=== PATIENT | female | born 1935 | race Hispanic/Latino ===

== ENCOUNTER 2016-10-01 15:35 | Emergency (ER) | payer MEDICARE, MEDICAID ==
--- NOTE | 2016-10-01 15:44 | ED PDOC ---
HPI:STROKE - Time Time: 15:41 - Historian Historian: Family (Patient's son) - Onset Date: 10/01/16 Time: 15:30 - Notes: Notes:: 81yo female was brought into the hospital after witnesses report seeing patient fall outside when her cane broke immediately prior to arrival. Patient may have hit her head on a parked car as she fell, loss of consciousness unknown. Attempted multiple sand worker services and patient was not able to understand until son came for translation. NIHSS Stroke Scale - Date/Time Evaluation Performed Date Performed: 10/01/16 Time Performed: 15:41 When Was NIHSS Performed: Baseline - How Severe is the Stroke Level of Consciousness: 0=Alert LOC to Questions: 0=Both comments correct LOC to commands: 0=Obeys both correctly Best Gaze: 0=Normal Visual: 0=No visual loss Facial: 0=Normal Motor Arm - Left: 0=No drift Motor Arm - Right: 0=No drift Motor Leg - Left: 0=No drift Motor Leg - Right: 0=No drift Limb Ataxia: 0=Absent Sensory: 0=Normal Best Language: 0=No aphasia Dysarthia: 0=Normal articulation Extinction & Inattention (Neglect): 0=Normal, no object Score: 0 rTPA Inclusion/Exclusion - Refusal of Treatment Patient Refused Treatment: No - Inclusion Criteria for Altepase Patient is 18 years or Older: Yes The Clinical Diagnosis of Ischemic Stroke That is Causing a Potentially Disabling Neurological Deficit: No Time of Onset is Well Established to be Less Than 270 Minute Before Treatment Would Begin: Yes Risk/Benefit Discussed With Patient/Family Member Present: No - Warning to TPA With Conditions Condition: Age Greater Than 75 years Additional Condition (For 3-4.5 Hour Window): Age Greater Than 80 Past Medical History Reviewed: Historical Data, Nursing Documentation, Vital Signs - Medical History PMH: Depression, Diabetes, HTN, Hypercholesterolemia, Hyperlipidemia, Chronic Kidney Disease (Low kidney function ) - Family History Family History: States: Unknown Family Hx - Home Medications Home Medications: Ambulatory Orders Medication Instructions Recorded Aripiprazole [Abilify] 30 mg PO DAILY 10/01/16 Ergocalciferol (Vitamin D2) 50,000 unit PO QWK 10/01/16 [Vitamin D2] Febuxostat [Uloric] 80 mg PO DAILY 10/01/16 LORazepam [Ativan] 0.5 mg PO BID 10/01/16 Oxybutynin Chloride [Oxybutynin 10 mg PO DAILY 10/01/16 Chloride ER] Paricalcitol [Zemplar] 1 mcg PO Q48H 10/01/16 Rosuvastatin Calcium [Crestor] 10 mg PO DAILY 10/01/16 Sertraline [Zoloft] 100 mg PO DAILY 10/01/16 Valsartan [Diovan] 320 mg PO DAILY 10/01/16 metFORMIN [glucOPHAGE] 500 mg PO BID 10/01/16 traZODone [Desyrel] 50 mg PO HS 10/01/16 - Allergies Allergies/Adverse Reactions: Allergies Allergy/AdvReac Type Severity Reaction Status Date / Time No Known Allergies Allergy Verified 07/01/15 10:14 Review of Systems ROS Statement: Except As Marked, All Systems Reviewed And Found Negative Musculoskeletal: Positive for: Neck Pain Neurological: Negative for: Weakness, Numbness, Headache, Dizziness Physical Exam - Reviewed Nursing Documentation Reviewed: Yes Vital Signs Reviewed: Yes - Physical Exam Appears: Positive for: Non-toxic, No Acute Distress Head Exam: Positive for: ATRAUMATIC, NORMAL INSPECTION, NORMOCEPHALIC Skin: Positive for: Warm, Dry, Pallor Eye Exam: Positive for: EOMI, PERRL ENT: Positive for: Other (tacky mucous membranes) Neck: Positive for: Normal, Painless ROM, Supple Cardiovascular/Chest: Positive for: Regular Rate, Rhythm Respiratory: Positive for: Normal Breath Sounds. Negative for: Rales, Rhonchi, Respiratory Distress Gastrointestinal/Abdominal: Positive for: Soft. Negative for: Tenderness Extremity: Positive for: Other (strength 4+/5 in all extremities. trace bilateral lower leg edema.) Neurologic/Psych: Positive for: Alert, Oriented (x3). Negative for: Aphasia, Facial Droop - Laboratory Results Result Diagrams: 10/01/16 15:45 10/01/16 15:45 - ECG ECG: Positive for: Interpreted By Me, Viewed By Me ECG Rhythm: Positive for: Normal QRS, Sinus Rhythm. Negative for: ST/T Changes Rate: 91 O2 Sat by Pulse Oximetry: 96 (RA) Pulse Ox Interpretation: Normal Medical Decision Making Medical Decision Makin: Dr. Hdz spoke to patient's son who will come to the ED. Impression: fall Differential includes electrolyte abnormality, dehydration, syncope, acute coronary syndrome, CVA, TIA. 1555 CT Head w/o is negative for acute changes per radiology. CT Head w/o Impression: No acute intracranial hemorrhage. . Moderate chronic periventricular white matter ischemic changes Moderate volume loss. 1556 Son is at bedside, tells newswriter patient is diabetic, has htn, and ckd. Son states patient has difficulty walking due to foot problems. Patient tells son she fell but is unsure of cause. Son states patient has difficulty lifting legs due to arthritis, other conditions, and is unsteady on her feet Patient denies headache, any pain or any injury. Also denies new weakness, numbness. Son states patient was feeling well when he took her food shopping this morning. Son denies any noticeable changes in speech. 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 Son states patient has fallen in the past, was given a walker but refuses to use it. Patient is scheduled to see PMD tomorrow. Patient's only compliant is very mild neck pain. 1556: after obtaining Hx from son, clinically patient most likely had mechanical trip and fall. Very unlikely stroke given pt has no deficits at onset of fall or now. Blood pressure normalized without any intervention. CXR Impression from radiology report Poor inspiration with low lung volumes, mild crowded bronchovascular markings and mild bibasilar atelectasis. 445p Labs demonstrated BUN/Cr of 58/2.0 D/w Dr Bright pt's interlocking tower operator, who reports this is stable for her. DW pt and son findings so far. Pending CT neck and mag/phos. 1814 CT C-Spine w/o Impression No CT evidence of acute fracture or subluxation. Advanced degenerative changes more prominent at C4-C5 and C6-C7. Pt stable for dc. Walker provided to patient and educated on fall precautions. Disposition - Clinical Impression Clinical Impression: Fall, CKD (chronic kidney disease) - Disposition Referrals: Rodger Salguero MD [Staff Provider] - 10/02/16 (FOLLOW UP SCHEDULED WITH DR SALGUERO TOMORROW) Disposition: Routine/Home Disposition Time: 18:00 Condition: GOOD Additional Instructions: CONTINUE ALL MEDICATIONS PRESCRIBED RETURN TO ER FOR WORSENING SYMPTOMS Instructions: Chronic Kidney Disease (ED), Fall Prevention for Older Adults (ED ) Additional Comments - Additional Comments Additional Comments: Scribe Attestation: Documented by Jose Landeros acting as a scribe for Torsten Roe MD. Provider Scribe Attestation: All medical record entries made by the Scribe were at my direction and personally dictated by me. I have reviewed the chart and agree that the record accurately reflects my personal performance of the history, physical exam, medical decision making, and the department course for this patient. I have also personally directed, reviewed, and agree with the discharge instructions and disposition.
[2016-10-01 15:56] LABS: BASO # 0.1 K/uL (0.0-0.2); BASO % 0.9 % (0.0-2.0); EOS # 0.1 K/uL (0.0-0.7); EOS % 0.7 % (0.0-4.0); HEMATOCRIT 33.3 % (34.0-47.0); LYMPH # 2.9 K/uL (1.0-4.3); LYMPH % 35.8 % (20.0-40.0); MEAN CELL VOLUME 84.9 fl (81.0-99.0); MEAN CORPUSCULAR HEMOGLOBIN 28.8 pg (27.0-31.0); MEAN PLATELET VOLUME 8.4 fl (7.2-11.7); MONO # 0.5 K/uL (0.0-0.8); MONO % 6.7 % (0.0-10.0); NEUT # 4.6 K/uL (1.8-7.0); NEUT % 55.9 % (50.0-75.0); RED CELL DISTRIBUTION WIDTH 14.8 % (11.5-14.5); WHITE BLOOD COUNT 8.2 K/uL (4.8-10.8)
[2016-10-01 16:15] LABS: CHLORIDE 104 mmol/L (98-107); POTASSIUM 4.3 MMOL/L (3.6-5.0); SODIUM 139 mmol/l (132-148)
[2016-10-01 16:16] LABS: PARTIAL THROMBOPLASTIN TIME 24.2 SECONDS (23.3-32.5)
[2016-10-01 16:17] LABS: ALB/GLOB RATIO 1.2 (1.0-2.1); BILIRUBIN,TOTAL 0.5 mg/dl (0.2-1.3); CARBON DIOXIDE 19 mmol/L (22-30); CHOLESTEROL 160 mg/dL (0-199); GFR AFRICAN-AMERICAN 29; TOTAL PROTEIN 8.2 G/DL (6.3-8.2)
[2016-10-01 16:18] LABS: ALKALINE PHOSPHATASE 73 U/L (38-126); ALT/SGPT 22 U/L (9-52); AST/SGOT 30 U/L (14-36); BLOOD UREA NITROGEN 58 mg/dl (7-17); CALCIUM 10.7 mg/dL (8.4-10.2); GLUCOSE,RANDOM 126 mg/dL (65-105)
[2016-10-01 16:41] LABS: PHOSPHOROUS 4.4 mg/dl (2.5-4.5)
[2016-10-01 16:42] LABS: MAGNESIUM 1.6 MG/DL (1.6-2.3)
[2016-10-01 17:12] VITALS: TEMP 97.9
--- NOTE | 2016-10-01 17:14 | CT ---
PROCEDURE: CT HEAD WITHOUT CONTRAST. HISTORY: code stroke COMPARISON: Comparison CT scan brain 07/01/2015 TECHNIQUE: Axial computed tomography images were obtained through the head/brain without intravenous contrast. Radiation dose: Total exam DLP = 1276.54 mGy-cm. This CT exam was performed using one or more of the following dose reduction techniques: Automated exposure control, adjustment of the mA and/or kV according to patient size, and/or use of iterative reconstruction technique. FINDINGS: HEMORRHAGE: No acute parenchymal, subarachnoid or extra-axial hemorrhage. BRAIN: Moderate chronic periventricular white matter ischemic changes seen extending peripherally into the deep and subcortical white matter both cerebral hemispheres. This appears to be some extension of these changes into the white matter tracts of both basal nuclei. Dense vascular calcifications of carotid siphons. Moderate volume loss. VENTRICLES: Ventricles are enlarged due to volume loss however no evidence of obstructive hydrocephalus CALVARIUM: No acute calvarial fractures. PARANASAL SINUSES: Unremarkable as visualized. No significant inflammatory changes. MASTOID AIR CELLS: Unremarkable as visualized. No inflammatory changes. OTHER FINDINGS: Status post cataract surgery right globe. IMPRESSION: No acute intracranial hemorrhage. . Moderate chronic periventricular white matter ischemic changes Moderate volume loss. Findings discussed with Dr. Hdz at approximately 3:56 p.m. with written down and read back verification
--- NOTE | 2016-10-01 17:16 | RAD ---
HISTORY: fall COMPARISON: Comparison made with prior study dated 07/01/2015 FINDINGS: LUNGS: Poor inspiration with low lung volumes, mild crowded bronchovascular markings and mild bibasilar atelectasis. PLEURA: No significant pleural effusion identified, no pneumothorax apparent. CARDIOVASCULAR: Mild cardiomegaly may also be in part due to low lung volumes OSSEOUS STRUCTURES: No significant abnormalities. VISUALIZED UPPER ABDOMEN: Normal. OTHER FINDINGS: None. IMPRESSION: Poor inspiration with low lung volumes, mild crowded bronchovascular markings and mild bibasilar atelectasis.
[2016-10-01 17:26] VITALS: BP 143/63; RESP 21
[2016-10-01 17:32] VITALS: PULSE 91; O2SAT 96
--- NOTE | 2016-10-01 18:11 | CT ---
PROCEDURE: CT Cervical Spine without contrast HISTORY: Neck pain status post fall COMPARISON: None available. TECHNIQUE: Axial computed tomography images were obtained of the cervical spine without the use of intravenous contrast. Coronal and sagittal reformatted images were created and reviewed. Radiation dose: Total exam DLP = 537.8 mGy-cm. This CT exam was performed using one or more of the following dose reduction techniques: Automated exposure control, adjustment of the mA and/or kV according to patient size, and/or use of iterative reconstruction technique. FINDINGS: VERTEBRAE: No fracture. Normal alignment. No destructive bony lesion. DISCS/SPINAL CANAL/NEURAL FORAMINA: Advanced degenerative changes seen more prominent at C4-C5 and C6-C7 . Large osteophyte disc bulging complex at C4-C5 and C6-C7. Narrowing of the intervertebral disc space at C4-C5 and C6-C7 noted. PARASPINAL SOFT TISSUES: [id number] enlargement of the right thyroid lobe contains focal calcification. OTHER FINDINGS: None. IMPRESSION: No CT evidence of acute fracture or subluxation. Advanced degenerative changes more prominent at C4-C5 and C6-C7.
--- NOTE | 2016-10-02 11:44 | CARD ---
APPROVED REPORT EKG Measurement Heart [id number] <Conclusion> Normal sinus rhythm Left axis deviation Moderate voltage criteria for LVH, may be normal variant Abnormal ECG
== END 2016-10-01 18:45 | disposition home or self-care (01) ==
LOC: H.ER 15:35
DX: N18.9 Chronic kidney disease, unspecified (principal); E11.9 Type 2 diabetes mellitus without complications; W19.XXXA Unspecified fall, initial encounter

== ENCOUNTER 2016-10-03 14:18 | Inpatient (IN) | payer MEDICARE, MEDICAID ==
--- NOTE | 2016-10-03 15:29 | ED PDOC ---
HPI: Abdomen Time Seen by Provider: 10/03/16 15:00 Chief Complaint (Nursing): Abdominal Pain Chief Complaint (Provider): Abdominal Pain History Per: Patient, Family History/Exam Limitations: no limitations Onset/Duration Of Symptoms: Days Current Symptoms Are (Timing): Still Present Severity: Mild Location Of Pain/Discomfort: Epigastric Quality Of Discomfort: "Pain" Associated Symptoms: denies: Fever, Nausea Exacerbating Factors: None Alleviating Factors: None Additional Complaint(s): Patient is a 81 year old female brought to ED by son for evaluation of abdominal pain and cough that began today. As per son, patient began coughing today, notes that the cough is causing her abdominal pain. Of note, patient fell a few days ago, evaluated at that time all negative imaging. Today with continue pain to bilateral arms. Denies any new falls. Of note, patient was evaluated by PMD yesterday as a routine visit, administered a pneumonia vaccine, no coughing at that time. Past Medical History Reviewed: Historical Data, Nursing Documentation, Vital Signs Vital Signs: Last Vital Signs Temp 98.5 F 10/06/16 08:22 Pulse 97 H 10/06/16 08:22 Resp 22 10/06/16 08:22 BP 159/81 H 10/06/16 08:22 Pulse Ox 93 L 10/06/16 08:50 - Medical History PMH: Depression, Diabetes, HTN, Hypercholesterolemia, Hyperlipidemia, Chronic Kidney Disease (Low kidney function ) - Surgical History Surgical History: No Surg Hx - Family History Family History: States: Unknown Family Hx - Living Arrangements Living Arrangements: With Family - Social History Current smoker - smoking cessation education provided: No Alcohol: None Drugs: Denies - Home Medications Home Medications: Ambulatory Orders Medication Instructions Recorded Aripiprazole [Abilify] 30 mg PO DAILY 10/01/16 Ergocalciferol (Vitamin D2) 50,000 unit PO QWK 10/01/16 [Vitamin D2] Febuxostat [Uloric] 80 mg PO DAILY 10/01/16 LORazepam [Ativan] 0.5 mg PO BID 10/01/16 Oxybutynin Chloride [Oxybutynin 10 mg PO DAILY 10/01/16 Chloride ER] Paricalcitol [Zemplar] 1 mcg PO Q48H 10/01/16 Rosuvastatin Calcium [Crestor] 10 mg PO DAILY 10/01/16 Sertraline [Zoloft] 100 mg PO DAILY 10/01/16 Valsartan [Diovan] 320 mg PO DAILY 10/01/16 metFORMIN [glucOPHAGE] 500 mg PO BID 10/01/16 traZODone [Desyrel] 50 mg PO HS 10/01/16 Enoxaparin [Lovenox] 30 mg SC DAILY syr 10/05/16 Insulin Human Regular [HumuLIN R] 0 units SC ACHS ml 10/05/16 Lactulose [Enulose] 10 gm PO DAILY PRN 10/05/16 Promethazine DM [Phenergan DM 5 ml PO Q6 PRN 10/05/16 Syrup] Azithromycin 500MG/NS 250ml 500 mg IV DAILY #7 bag 10/06/16 [Zithromax 500mg in NS] cefTRIAXone 1 gm [Rocephin 1 gram 1 gm IVPB DAILY #7 bag 10/06/16 IVPB] - Allergies Allergies/Adverse Reactions: Allergies Allergy/AdvReac Type Severity Reaction Status Date / Time No Known Allergies Allergy Verified 07/01/15 10:14 Review of Systems ROS Statement: Except As Marked, All Systems Reviewed And Found Negative Constitutional: Negative for: Fever, Chills Cardiovascular: Negative for: Chest Pain, Palpitations Respiratory: Positive for: Cough. Negative for: Shortness of Breath Gastrointestinal: Positive for: Abdominal Pain Musculoskeletal: Positive for: Arm Pain Neurological: Negative for: Weakness, Numbness Physical Exam - Reviewed Nursing Documentation Reviewed: Yes Vital Signs Reviewed: Yes - Physical Exam Appears: Positive for: Non-toxic, No Acute Distress Head Exam: Positive for: ATRAUMATIC, NORMAL INSPECTION, NORMOCEPHALIC Skin: Positive for: Normal Color, Warm, DRY Eye Exam: Positive for: Normal appearance, PERRL Neck: Positive for: Normal, Painless ROM Cardiovascular/Chest: Positive for: Regular Rate, Rhythm, Chest Non Tender. Negative for: Murmur Respiratory: Positive for: Normal Breath Sounds. Negative for: Wheezing Gastrointestinal/Abdominal: Positive for: Normal Exam, Soft. Negative for: Tenderness Back: Positive for: Normal Inspection Extremity: Positive for: Normal ROM Neurologic/Psych: Positive for: Alert, Oriented - Laboratory Results Result Diagrams: 10/06/16 05:30 10/06/16 05:30 - ECG O2 Sat by Pulse Oximetry: 99 (RA) Pulse Ox Interpretation: Normal - Progress ED Course And Treament: 17:37 CXR FINDINGS: Examination limited by habitus and hypoinflation. LUNGS: Mild left lower lobe infiltrate. Linear atelectasis, right lung base. Please note that chest x-ray has limited sensitivity for the detection of pulmonary masses. PLEURA: No significant pleural effusion identified. No definite pneumothorax . CARDIOVASCULAR: Borderline cardiomegaly. Ectatic aorta. OSSEOUS STRUCTURES: Osseous demineralization. Degenerative changes. Kyphosis. VISUALIZED UPPER ABDOMEN: Unremarkable. OTHER FINDINGS: None. IMPRESSION: Mild left lower lobe infiltrate. Linear atelectasis, right lung base. 18:15 Patient will be given antibiotics for pneumonia and will be admitted. Son was informed of plan at bedside and agrees to the plan. Spoke to Bennett Hagen who will be admitting for Dr. Esparza. Medical Decision Making Medical Decision Making: Time: 151 Initial impression: chest/back pain R/O pneumonia and strep Initial plan: -- CMP -- Lipase -- CBC -- CXR -- Pepcid and Rapid strep cxr mild LLL infiltrate pt and pts son at bedside made forrest of results will admit iv abx ordered dx pneumonia Scribe Attestation: Documented by Beth Londono acting as a scribe for Luis Noriega MD. Scribe Attestation: All medical record entries made by the Scribe were at my direction and personally dictated by me. I have reviewed the chart and agree that the record accurately reflects my personal performance of the history, physical exam, medical decision making, and the department course for this patient. I have also personally directed, reviewed, and agree with the discharge instructions and disposition. Disposition - Clinical Impression Clinical Impression: Rib pain, Pneumonia - Patient ED Disposition Is Patient to be Admitted: Yes - Disposition Disposition Time: 17:00 Condition: STABLE
[2016-10-03 16:18] LABS: BASO % 0.4 % (0.0-2.0); EOS % 0.6 % (0.0-4.0); HEMATOCRIT 35.9 % (34.0-47.0); LYMPH # 0.9 K/uL (1.0-4.3); LYMPH % 13.6 % (20.0-40.0); MEAN CELL VOLUME 84.5 fl (81.0-99.0); MEAN CORPUSCULAR HEMOGLOBIN 28.9 pg (27.0-31.0); MEAN CORPUSCULAR HGB CONC 34.2 g/dL (33.0-37.0); MEAN PLATELET VOLUME 8.3 fl (7.2-11.7); MONO # 0.5 K/uL (0.0-0.8); MONO % 7.8 % (0.0-10.0); NEUT # 5.4 K/uL (1.8-7.0); NEUT % 77.6 % (50.0-75.0); RED CELL DISTRIBUTION WIDTH 14.8 % (11.5-14.5); WHITE BLOOD COUNT 6.9 K/uL (4.8-10.8)
[2016-10-03 16:46] LABS: BILIRUBIN,TOTAL 0.7 mg/dl (0.2-1.3); CALCIUM 10.3 mg/dL (8.4-10.2); POTASSIUM 4.5 MMOL/L (3.6-5.0); TOTAL PROTEIN 8.2 G/DL (6.3-8.2)
[2016-10-03 16:58] LABS: ALB/GLOB RATIO 1.1 (1.0-2.1)
--- NOTE | 2016-10-03 17:39 | RAD ---
HISTORY: cough COMPARISON: Chest x-ray performed 10/01/16 TECHNIQUE: Chest PA and lateral FINDINGS: Examination limited by habitus and hypoinflation. LUNGS: Mild left lower lobe infiltrate. Linear atelectasis, right lung base. Please note that chest x-ray has limited sensitivity for the detection of pulmonary masses. PLEURA: No significant pleural effusion identified. No definite pneumothorax . CARDIOVASCULAR: Borderline cardiomegaly. Ectatic aorta. OSSEOUS STRUCTURES: Osseous demineralization. Degenerative changes. Kyphosis. VISUALIZED UPPER ABDOMEN: Unremarkable. OTHER FINDINGS: None. IMPRESSION: Mild left lower lobe infiltrate. Linear atelectasis, right lung base.
[2016-10-03] MEDS ORDERED: Azithromycin 500 MG in Sodium Chloride 0.9% 250 ML IVPB STA (18:33)
[2016-10-03] MEDS ORDERED: Albuterol 0.083% Inhal Sol (2.5 mg/3 mL) UD INH PRN (18:34)
[2016-10-03] MEDS: Promethazine DM 6.25 mg-15 mg/5 ml Syrup PO PRN (23:45)
[2016-10-04] MEDS: Promethazine DM 6.25 mg-15 mg/5 ml Syrup PO PRN ×2 (05:22→16:19)
[2016-10-04 06:54] LABS: BASO % 0.5 % (0.0-2.0); EOS # 0.1 K/uL (0.0-0.7); EOS % 1.1 % (0.0-4.0); HEMATOCRIT 34.8 % (34.0-47.0); LYMPH # 1.3 K/uL (1.0-4.3); LYMPH % 17.8 % (20.0-40.0); MEAN CELL VOLUME 85.3 fl (81.0-99.0); MEAN CORPUSCULAR HEMOGLOBIN 28.5 pg (27.0-31.0); MEAN CORPUSCULAR HGB CONC 33.4 g/dL (33.0-37.0); MEAN PLATELET VOLUME 8.4 fl (7.2-11.7); MONO # 0.7 K/uL (0.0-0.8); MONO % 10.1 % (0.0-10.0); NEUT % 70.5 % (50.0-75.0); NRBC % 0.1 % (0.0-0.0); RED CELL DISTRIBUTION WIDTH 14.8 % (11.5-14.5); WHITE BLOOD COUNT 7.1 K/uL (4.8-10.8)
[2016-10-04 07:12] LABS: BILIRUBIN,TOTAL 0.5 mg/dl (0.2-1.3); CALCIUM 9.6 mg/dL (8.4-10.2); POTASSIUM 4.4 MMOL/L (3.6-5.0); TOTAL PROTEIN 7.4 G/DL (6.3-8.2)
--- NOTE | 2016-10-04 07:27 | CP.PCM.HP ---
History of Present Illness - History of Present Illness History of Present Illness: pt admitted for pna. states has had cough x 3 days prior to admission. spoke w/ son whostates pt has also been unstable on walker and fell 2 days ago. no f/c, n /v/d. bw and imagin gnoted. son requesting jas. Present on Admission - Present on Admission Any Indicators Present on Admission: Yes History of Uncontrolled Diabetes: Yes Review of Systems - Respiratory Respiratory: As Per HPI, Cough, Chest Congestion - Musculoskeletal Musculoskeletal: As Per HPI - Neurological Neurological: As Per HPI, Frequent Falls Past Patient History - Infectious Disease Hx of Infectious Diseases: None - Past Medical History & Family History Past Medical History?: Yes - Past Social History Smoking Status: Never Smoked - CARDIAC Hx Hypercholesterolemia: Yes Hx Hypertension: Yes - PULMONARY Hx Respiratory Disorders: No - NEUROLOGICAL Hx Neurological Disorder: No - HEENT Hx HEENT Problems: No - RENAL Hx Chronic Kidney Disease: Yes (Low kidney function ) - ENDOCRINE/METABOLIC Hx Endocrine Disorders: Yes Hx Diabetes Mellitus Type 2: Yes - HEMATOLOGICAL/ONCOLOGICAL Hx Blood Disorders: No - INTEGUMENTARY Hx Dermatological Problems: No - MUSCULOSKELETAL/RHEUMATOLOGICAL Hx Falls: Yes - GASTROINTESTINAL Hx Gastrointestinal Disorders: No - GENITOURINARY/GYNECOLOGICAL Hx Genitourinary Disorders: No - PSYCHIATRIC Hx Depression: Yes - SURGICAL HISTORY Hx Surgeries: No - ANESTHESIA Hx Anesthesia: No Hx Anesthesia Reactions: No Meds Allergies/Adverse Reactions: Allergies Allergy/AdvReac Type Severity Reaction Status Date / Time No Known Allergies Allergy Verified 07/01/15 10:14 Physical Exam - Constitutional Appears: Well, Non-toxic, No Acute Distress - Head Exam Head Exam: ATRAUMATIC, NORMAL INSPECTION, NORMOCEPHALIC - Eye Exam Eye Exam: EOMI, Normal appearance, PERRL Pupil Exam: NORMAL ACCOMODATION, PERRL - ENT Exam ENT Exam: Mucous Membranes Moist, Normal Exam - Neck Exam Neck exam: Positive for: Normal Inspection - Respiratory Exam Respiratory Exam: Clear to Auscultation Bilateral, Rhonchi, NORMAL BREATHING PATTERN Additional comments: r base rhonchi - Cardiovascular Exam Cardiovascular Exam: REGULAR RHYTHM, RRR, +S1, +S2 - GI/Abdominal Exam GI & Abdominal Exam: Normal Bowel Sounds, Soft. absent: Tenderness - Extremities Exam Extremities exam: Positive for: full ROM, normal capillary refill, normal inspection, pedal pulses present - Back Exam Back exam: NORMAL INSPECTION - Neurological Exam Neurological exam: Abnormal Gait, Alert, CN II-XII Intact, Normal Gait, Oriented x3, Reflexes Normal - Psychiatric Exam Psychiatric exam: Normal Affect, Normal Mood - Skin Skin Exam: Dry, Intact, Normal Color, Warm Results - Vital Signs Recent Vital Signs: Last Vital Signs Temp 97.5 F L 10/04/16 05:00 Pulse 87 10/04/16 05:00 Resp 19 10/04/16 05:00 BP 158/88 H 10/04/16 05:00 Pulse Ox 99 10/04/16 05:00 - Labs Result Diagrams: 10/04/16 05:35 10/04/16 05:35 Labs: Laboratory Results - last 24 hr 10/03/16 10/04/16 10/04/16 21:20 05:35 05:35 WBC 7.1 RBC 4.08 Hgb 11.6 L Hct 34.8 MCV 85.3 MCH 28.5 MCHC 33.4 RDW 14.8 H Plt Count 143 MPV 8.4 Neut % (Auto) 70.5 Lymph % (Auto) 17.8 L Frio % (Auto) 10.1 H Eos % (Auto) 1.1 Baso % (Auto) 0.5 Neut # 5.0 Lymph # 1.3 Frio # 0.7 Eos # 0.1 Baso # 0.0 Sodium 140 Potassium 4.4 Chloride 106 Carbon Dioxide 21 L Anion Gap 17 BUN 47 H Creatinine 1.7 H Est GFR ( Amer) 35 Est GFR (Non-Af Amer) 29 POC Glucose (mg/dL) 198 H Random Glucose 223 H Calcium 9.6 Total Bilirubin 0.5 AST 23 ALT 19 Alkaline Phosphatase 76 Total Protein 7.4 Albumin 3.8 Globulin 3.6 Albumin/Globulin Ratio 1.0 10/04/16 05:46 WBC RBC Hgb Hct MCV MCH MCHC RDW Plt Count MPV Neut % (Auto) Lymph % (Auto) Frio % (Auto) Eos % (Auto) Baso % (Auto) Neut # Lymph # Frio # Eos # Baso # Sodium Potassium Chloride Carbon Dioxide Anion Gap BUN Creatinine Est GFR ( Amer) Est GFR (Non-Af Amer) POC Glucose (mg/dL) 222 H Random Glucose Calcium Total Bilirubin AST ALT Alkaline Phosphatase Total Protein Albumin Globulin Albumin/Globulin Ratio Assessment & Plan (1) Pneumonia Assessment and Plan: rocephin/zithormax, phenergen, albuterol Status: Acute (2) DVT prophylaxis Assessment and Plan: scd and aehose, lovneox Status: Acute (3) Fall Assessment and Plan: pt/ot jas Status: Acute (4) Type 2 diabetes mellitus with hyperglycemia Assessment and Plan: riss, home meds, fsbg Status: Acute (5) Constipation Assessment and Plan: colace, lactuloose Status: Acute Decision To Admit - Pt Status Changed To: Hospital Disposition Of: Inpatient - Admit Certification Admit to Inpatient:: After my assessment, the patient will require hospitalization for at least two midnights. This is because of the severity of symptoms shown, intensity of services needed, and/or the medical risk in this patient being treated as an outpatient. - . Bed Request Type: Med/Surg Admitting Physician: Gilbert Esparza
[2016-10-04] MEDS: Azithromycin 500 MG in Sodium Chloride 0.9% 250 ML IVPB SCH (10:20)
[2016-10-04] MEDS ORDERED: Insulin Regular 100 units/ml SC STA (13:49)
--- NOTE | 2016-10-04 14:01 | PQF GENQUE ---
Nicole Hagen FIELD PROFESSIONAL, Is there an associated diagnosis to go along with the following chemistry lab results ?: BUN:52->47 Creatinine:2.1->1.7 GFR ( Amer/Non-Af Amer:->/ OR: Disagree OR: Unable to determine OR: Other explanation of clinical finding H and P: 81 year old female: Assessment Plan:(1) Pneumonia Assessment and Plan : rocephin/zithormax, phenergen, albuterol Status: Acute (2) DVT prophylaxis Assessment and Plan: scd and aehose, lovneox Status: Acute (3) Fall Assessment and Plan: pt/ot jas Status: Acute (4) Type 2 diabetes mellitus with hyperglycemia Assessment and Plan: riss, home meds, fsbg Status: Acute (5) Constipation Assessment and Plan: colace, lactuloose This form is a permanent part of the medical record Clarification of your documentation is requested to better reflect the severity of illness and intensity of treatment of your patient. Indicators present [] Specify: [] [] Specify: [] [] Specify: [] [] Specify: [] Location in the medical record that reflects the above clinical findings: [] Treatment Provided: [] PHYSICIAN'S RESPONSE Based on your medical judgment of the clinical indicators outlined above please clarify the following: [] Practitioner response dipak secondary to dehydration, ivf [] If unable to determine, please check the box, sign and date. Present On Admission (POA) Indicator: [] Present at the time of admission [] Not present at the time of admission [] Clinically Undetermined In responding to this query, please exercise your independent professional judgment. The fact that a question is asked does not imply that any particular answer is desired or expected. Thank you for your clarification on this documentation. If you have any questions please call. * Thank you, Shanon Lama RN BSN ext. #[phone] MTDD
--- NOTE | 2016-10-04 14:10 | PQF GENQUE ---
Nicole Hagen PHYSICIAN IN PRIVATE PRACTICE, 1. Please specify type of pneumonia in the progress notes:if known after work up completed: i.e. Aspiration pneumonia Please document specific aspirate (food, liquids, etc.) Please indicate if this is postprocedural Bacterial (specify organism) Bronchopneumonia (specify organism) Interstitual pneumonia Organizing pneumonia/BOOP Pneumonia with influenza, phil flu, or H1N1 flu RSV pneumonia Viral pneumonia Other pneumonia (specify organism or type) OR; Unable to determine OR: Unknown 2.. Please specify the organism causing the pneumonia:if known: after work up completed Note: CAP, HAP, and HCAP indicate where the pneumonia was acquired, not a specific type. H and P:81 year old female: diagnoses include: (1) Pneumonia Assessment and Plan : rocephin/zithormax, phenergen, albuterol Status: Acute cxr:Imp:Mild left lower lobe infiltrate. Linear atelectasis, right lung base. This form is a permanent part of the medical record Clarification of your documentation is requested to better reflect the severity of illness and intensity of treatment of your patient. Indicators present [] Specify: [] [] Specify: [] [] Specify: [] [] Specify: [] Location in the medical record that reflects the above clinical findings: [] Treatment Provided: [] PHYSICIAN'S RESPONSE Based on your medical judgment of the clinical indicators outlined above please clarify the following: [] Practitioner response CAP [] If unable to determine, please check the box, sign and date. Present On Admission (POA) Indicator: [] Present at the time of admission [] Not present at the time of admission [] Clinically Undetermined In responding to this query, please exercise your independent professional judgment. The fact that a question is asked does not imply that any particular answer is desired or expected. Thank you for your clarification on this documentation. If you have any questions please call. * Thank you, Shanon Lama RN BSN ext. #[phone] MTDD
[2016-10-04] MEDS: Insulin Regular 100 units/ml SC SCH ×3 (16:26→22:17)
[2016-10-04] MEDS ORDERED: Ergocalciferol 50,000 Intl Units Cap PO SCH (21:25)
[2016-10-05] MEDS: Insulin Regular 100 units/ml SC SCH ×4 (07:47→21:02)
[2016-10-05] MEDS: Enoxaparin 30 mg Syringe SC SCH (08:20)
[2016-10-05] MEDS: Azithromycin 500 MG in Sodium Chloride 0.9% 250 ML IVPB SCH (08:31)
[2016-10-05] MEDS: Promethazine DM 6.25 mg-15 mg/5 ml Syrup PO PRN ×2 (08:35→21:02)
--- NOTE | 2016-10-05 09:35 | CP.PCM.PN ---
Subjective - Date & Time of Evaluation Date of Evaluation: 10/05/16 Time of Evaluation: 09:35 - Subjective Subjective: in bed, c/o pleuritc pain w/ coughing, no f/c, n/v/d. bw noted. case d/c w/ son at bedside. for min macias tomorrow. glucose trending down. ivf started for elev bun/cr Objective - Vital Signs/Intake and Output Vital Signs (last 24 hours): Temp Pulse Resp BP Pulse Ox 98.3 F 100 H 20 179/100 H 94 L 10/05/16 08:48 10/05/16 08:48 10/05/16 08:48 10/05/16 08:48 10/05/16 08:48 - Medications Medications: Current Medications Acetaminophen (Tylenol 325mg Tab) 650 mg PO Q4 PRN PRN Reason: Fever >100.4 F Albuterol Sulfate (Albuterol 0.083% Inhal Renetta (2.5 Mg/3 Ml) Ud) 2.5 mg INH RQ4 PRN PRN Reason: Shortness of Breath Aripiprazole (Abilify) 30 mg PO DAILY [facility] Last Admin: 10/05/16 08:17 Dose: 30 mg Atorvastatin Calcium (Lipitor) 20 mg PO DAILY [facility] Last Admin: 10/05/16 08:20 Dose: 20 mg Docusate Sodium (Colace) 100 mg PO BID [facility] Last Admin: 10/05/16 08:18 Dose: 100 mg Enoxaparin Sodium (Lovenox) 30 mg SC DAILY [facility] PRN Reason: Protocol Last Admin: 10/05/16 08:20 Dose: 30 mg Ergocalciferol (Drisdol 50,000 Intl Units Cap) 1 cap PO Fr [facility] Last Admin: 10/04/16 22:53 Dose: 1 cap Home Med (Febuxostat [Uloric]) 80 mg PO DAILY [facility] Home Med (Paricalcitol [Zemplar]) 1 mcg PO Q48H [facility] Ceftriaxone Sodium 1 gm/ (Sodium Chloride) 100 mls @ 100 mls/hr IVPB DAILY [facility] Last Admin: 10/05/16 08:20 Dose: 100 mls/hr Azithromycin 500 mg/ Sodium (Chloride) 250 mls @ 250 mls/hr IVPB DAILY [facility] Last Admin: 10/05/16 08:31 Dose: 250 mls/hr Insulin Human Regular (Humulin R) 0 units SC ACHS [facility] PRN Reason: Protocol Last Admin: 10/05/16 07:47 Dose: 4 units Lactulose (Enulose) 10 gm PO DAILY PRN PRN Reason: Constipation Last Admin: 10/04/16 16:18 Dose: 10 gm Lorazepam (Ativan) 0.5 mg PO BID [facility] Last Admin: 10/05/16 09:20 Dose: Not Given Metformin HCl (Glucophage) 500 mg PO BID [facility] Last Admin: 10/05/16 08:19 Dose: 500 mg Oxybutynin Chloride (Ditropan Tab) 5 mg PO BID [facility] Last Admin: 10/05/16 08:19 Dose: 5 mg Promethazine HCl/Dextromethorphan (Phenergan Dm Syrup) 5 ml PO Q6 PRN PRN Reason: Cough Last Admin: 10/05/16 08:35 Dose: 5 ml Sertraline HCl (Zoloft) 100 mg PO DAILY [facility] Last Admin: 10/05/16 08:22 Dose: 100 mg Trazodone HCl (Desyrel) 50 mg PO HS [facility] Last Admin: 10/04/16 22:11 Dose: 50 mg Valsartan (Diovan) 320 mg PO DAILY [facility] Last Admin: 10/05/16 08:19 Dose: 320 mg - Labs Labs: 10/04/16 05:35 10/04/16 05:35 - Constitutional Appears: Well, Non-toxic, No Acute Distress - Head Exam Head Exam: ATRAUMATIC, NORMAL INSPECTION, NORMOCEPHALIC - Eye Exam Eye Exam: EOMI, Normal appearance, PERRL Pupil Exam: NORMAL ACCOMODATION, PERRL - ENT Exam ENT Exam: Mucous Membranes Moist, Normal Exam - Neck Exam Neck Exam: Full ROM, Normal Inspection. absent: Lymphadenopathy - Respiratory Exam Respiratory Exam: Rhonchi, NORMAL BREATHING PATTERN Additional comments: good air entry - Cardiovascular Exam Cardiovascular Exam: REGULAR RHYTHM, +S1, +S2. absent: Murmur - GI/Abdominal Exam GI & Abdominal Exam: Soft, Normal Bowel Sounds. absent: Tenderness - Extremities Exam Extremities Exam: Full ROM, Normal Capillary Refill, Normal Inspection. absent : Joint Swelling, Pedal Edema - Back Exam Back Exam: NORMAL INSPECTION - Neurological Exam Neurological Exam: Alert, Awake, CN II-XII Intact, Normal Gait, Oriented x3 - Psychiatric Exam Psychiatric exam: Normal Affect, Normal Mood - Skin Skin Exam: Dry, Intact, Normal Color, Warm Assessment and Plan (1) Pneumonia Status: Acute (2) DVT prophylaxis Status: Acute (3) Fall Status: Acute (4) Type 2 diabetes mellitus with hyperglycemia Status: Acute (5) Constipation Status: Acute - Assessment and Plan (Free Text) Assessment: (1) Pneumonia Assessment and Plan: rocephin/zithormax, phenergen, albuterol Status: Acute (2) DVT prophylaxis Assessment and Plan: scd and aehose, lovneox Status: Acute (3) Fall Assessment and Plan: pt/ot jas Status: Acute (4) Type 2 diabetes mellitus with hyperglycemia Assessment and Plan: riss, home meds, fsbg Status: Acute (5) Constipation Assessment and Plan: colace, lactuloose Status: Acute 1-bxq-irjaimuup, trend bun/cr
[2016-10-05 10:26] LABS: BASO % 0.5 % (0.0-2.0); EOS % 0.3 % (0.0-4.0); LYMPH # 0.8 K/uL (1.0-4.3); LYMPH % 9.1 % (20.0-40.0); MEAN CELL VOLUME 84.2 fl (81.0-99.0); MEAN CORPUSCULAR HEMOGLOBIN 28.9 pg (27.0-31.0); MEAN CORPUSCULAR HGB CONC 34.3 g/dL (33.0-37.0); MEAN PLATELET VOLUME 8.5 fl (7.2-11.7); MONO # 0.8 K/uL (0.0-0.8); MONO % 8.4 % (0.0-10.0); NEUT # 7.3 K/uL (1.8-7.0); NEUT % 81.7 % (50.0-75.0); PLATELET COUNT 154 K/uL (130-400); RED CELL DISTRIBUTION WIDTH 14.7 % (11.5-14.5)
[2016-10-05 10:37] LABS: BILIRUBIN,TOTAL 0.6 mg/dl (0.2-1.3); CALCIUM 9.4 mg/dL (8.4-10.2); POTASSIUM 4.3 MMOL/L (3.6-5.0); TOTAL PROTEIN 7.2 G/DL (6.3-8.2)
[2016-10-05] MEDS ORDERED: Lactulose 10 gm/15 ml Syrup PO PRN (10:45)
[2016-10-05 11:26] LABS: EOSINOPHIL 1 % (0-7); NEUTROPHIL 83 % (42-75); REACTIVE LYMPHOCYTES 1 % (0-0); TOTAL CELLS COUNTED 100
[2016-10-05 11:28] LABS: LARGE PLATELETS PRESENT
[2016-10-05] MEDS: Sodium Chloride 0.9% 1,000 ML IV SCH (13:03)
[2016-10-06] MEDS: Sodium Chloride 0.9% 1,000 ML IV SCH (06:24)
[2016-10-06] MEDS: Promethazine DM 6.25 mg-15 mg/5 ml Syrup PO PRN (06:24)
[2016-10-06] MEDS: Insulin Regular 100 units/ml SC SCH ×2 (06:30→12:04)
[2016-10-06 06:47] LABS: BASO % 0.4 % (0.0-2.0); EOS # 0.1 K/uL (0.0-0.7); EOS % 0.7 % (0.0-4.0); HEMATOCRIT 31.1 % (34.0-47.0); LYMPH # 1.1 K/uL (1.0-4.3); LYMPH % 13.3 % (20.0-40.0); MEAN CELL VOLUME 85.2 fl (81.0-99.0); MEAN CORPUSCULAR HEMOGLOBIN 29.2 pg (27.0-31.0); MEAN CORPUSCULAR HGB CONC 34.3 g/dL (33.0-37.0); MEAN PLATELET VOLUME 8.9 fl (7.2-11.7); MONO # 0.8 K/uL (0.0-0.8); MONO % 9.6 % (0.0-10.0); NEUT # 6.2 K/uL (1.8-7.0); RED CELL DISTRIBUTION WIDTH 14.9 % (11.5-14.5); WHITE BLOOD COUNT 8.1 K/uL (4.8-10.8)
[2016-10-06 06:55] LABS: ALB/GLOB RATIO 0.9 (1.0-2.1); BILIRUBIN,TOTAL 0.8 mg/dl (0.2-1.3); CALCIUM 9.2 mg/dL (8.4-10.2); POTASSIUM 4.1 MMOL/L (3.6-5.0); TOTAL PROTEIN 6.9 G/DL (6.3-8.2)
[2016-10-06 08:22] VITALS: BP 159/81; PULSE 97; RESP 22; TEMP 98.5
[2016-10-06] MEDS: Enoxaparin 30 mg Syringe SC SCH (08:24)
[2016-10-06] MEDS: Azithromycin 500 MG in Sodium Chloride 0.9% 250 ML IVPB SCH (08:31)
--- NOTE | 2016-10-06 09:30 | CP.PCM.DIS ---
Provider - Provider Date of Admission: 10/03/16 18:32 Attending physician: Gilbert Esparza MD Time Spent in preparation of Discharge (in minutes): 15 Diagnosis - Discharge Diagnosis (1) Pneumonia Status: Acute (2) DVT prophylaxis Status: Acute (3) Fall Status: Acute (4) Type 2 diabetes mellitus with hyperglycemia Status: Acute (5) Constipation Status: Acute Hospital Course - Lab Results Lab Results: Micro Results 10/03/16 19:15 Blood Blood Culture - Preliminary NO GROWTH AFTER 48 HOURS 10/03/16 19:00 Blood Blood Culture - Preliminary NO GROWTH AFTER 24 HOURS Most Recent Lab Values WBC 8.1 K/uL (4.8-10.8) 10/06/16 05:30 RBC 3.65 Mil/uL (3.80-5.20) L 10/06/16 05:30 Hgb 10.7 g/dL (12.0-16.0) L 10/06/16 05:30 Hct 31.1 % (34.0-47.0) L 10/06/16 05:30 MCV 85.2 fl (81.0-99.0) 10/06/16 05:30 MCH 29.2 pg (27.0-31.0) 10/06/16 05:30 MCHC 34.3 g/dL (33.0-37.0) 10/06/16 05:30 RDW 14.9 % (11.5-14.5) H 10/06/16 05:30 Plt Count 122 K/uL (130-400) L D 10/06/16 05:30 MPV 8.9 fl (7.2-11.7) 10/06/16 05:30 Neut % (Auto) 76.0 % (50.0-75.0) H 10/06/16 05:30 Lymph % (Auto) 13.3 % (20.0-40.0) L 10/06/16 05:30 Refugio % (Auto) 9.6 % (0.0-10.0) 10/06/16 05:30 Eos % (Auto) 0.7 % (0.0-4.0) 10/06/16 05:30 Baso % (Auto) 0.4 % (0.0-2.0) 10/06/16 05:30 Neut # 6.2 K/uL (1.8-7.0) 10/06/16 05:30 Lymph # 1.1 K/uL (1.0-4.3) 10/06/16 05:30 Refugio # 0.8 K/uL (0.0-0.8) 10/06/16 05:30 Eos # 0.1 K/uL (0.0-0.7) 10/06/16 05:30 Baso # 0.0 K/uL (0.0-0.2) 10/06/16 05:30 Neutrophils % (Manual) 83 % (42-75) H 10/05/16 10:00 Band Neutrophils % 1 % (0-2) 10/05/16 10:00 Lymphocytes % (Manual) 9 % (20-50) L 10/05/16 10:00 Reactive Lymphs % 1 % (0-0) H 10/05/16 10:00 Monocytes % (Manual) 5 % (0-10) 10/05/16 10:00 Eosinophils % (Manual) 1 % (0-7) 10/05/16 10:00 Platelet Estimate Normal (NORMAL) 10/05/16 10:00 Large Platelets Present 10/05/16 10:00 Poikilocytosis (manual Slight 10/05/16 10:00 Anisocytosis (manual) Slight 10/05/16 10:00 Tear Drop Cells Slight 10/05/16 10:00 Ovalocytes Slight 10/05/16 10:00 Sodium 140 mmol/l (132-148) 10/06/16 05:30 Potassium 4.1 MMOL/L (3.6-5.0) 10/06/16 05:30 Chloride 108 mmol/L (98-107) H 10/06/16 05:30 Carbon Dioxide 22 mmol/L (22-30) 10/06/16 05:30 Anion Gap 14 (10-20) 10/06/16 05:30 BUN 52 mg/dl (7-17) H 10/06/16 05:30 Creatinine 1.7 mg/dL (0.7-1.2) H 10/06/16 05:30 Est GFR ( Amer) 35 10/06/16 05:30 Est GFR (Non-Af Amer) 29 10/06/16 05:30 POC Glucose (mg/dL) 247 mg/dL (65-110) H 10/06/16 05:57 Random Glucose 208 mg/dL (65-105) H 10/06/16 05:30 Calcium 9.2 mg/dL (8.4-10.2) 10/06/16 05:30 Total Bilirubin 0.8 mg/dl (0.2-1.3) 10/06/16 05:30 AST 35 U/L (14-36) 10/06/16 05:30 ALT 36 U/L (9-52) 10/06/16 05:30 Alkaline Phosphatase 102 U/L (38-126) 10/06/16 05:30 Total Protein 6.9 G/DL (6.3-8.2) 10/06/16 05:30 Albumin 3.4 g/dL (3.5-5.0) L 10/06/16 05:30 Globulin 3.6 gm/dL (2.2-3.9) 10/06/16 05:30 Albumin/Globulin Ratio 0.9 (1.0-2.1) L 10/06/16 05:30 Lipase 83 U/L (23-300) 10/03/16 16:11 Grp A Beta Strep Ag Negative (NEGATIVE) 10/03/16 15:40 Discharge Exam - Head Exam Head Exam: ATRAUMATIC, NORMAL INSPECTION, NORMOCEPHALIC Discharge Plan - Discharge Medications Prescriptions: Azithromycin 500MG/NS 250ml [Zithromax 500mg in NS] 500 mg IV DAILY #7 bag cefTRIAXone 1 gm [Rocephin 1 gram IVPB] 1 gm IVPB DAILY #7 bag - Follow Up Plan Condition: STABLE Disposition: REHAB FACILITY/REHAB UNIT Additional Instructions: no distress/complaints. minimal cough/congestion. final dx-pna, falls, constipation f/u rmg, rted prn, emds per med rec
--- NOTE | 2016-10-06 11:38 | PN ---
DATE: 10/06/2016 The patient is doing well in bed, no cough, congestion, fever, chills, nausea, vomiting or diarrhea. The patient is for discharge disposition today to [facility]. The patient is still complaining of constipation despite medications for same. REVIEW OF SYSTEMS: Constipation. No cough or congestion at this time. PHYSICAL EXAMINATION: GENERAL: Alert, oriented to her baseline. HEART: Regular rate and rhythm. No murmurs, rubs, or gallops. LUNGS: Clear in all grossman bilaterally. No rhonchi heard today. ABDOMEN: Soft, nontender. Bowel sounds x 4. This is resolved from tenderness to the upper abdomen yesterday. EXTREMITIES: Distal pulses, motor sensation intact. Cap refill is brisk. DIAGNOSES AND PLAN: Pneumonia. Continue Zithromax, Rocephin, cough medication , albuterol p.r.n. for subacute today. We will continue to follow at [facility] for Constipation, lactulose and Colace. Deep venous thrombosis prophylaxis, sequential compression devices and anti-embolism hose. We will continue to follow with [facility] in [facility]. [place] cc: [id number] TT: 10/06/2016 11:38:14 Confirmation # [id number] Dictation # [id number] karen GARSIA
[2016-10-06 20:04] VITALS: O2SAT 99
== END 2016-10-06 13:14 | DRG 195 ==
LOC: H.ER 14:18 → H.ERHOLD 18:32 → H.MEDSURG1 20:33
PROVIDERS: ADMIT Family Medicine; ATTEND Family Medicine
DX: J18.9 Pneumonia, unspecified organism (principal); E11.22 Type 2 diabetes mellitus with diabetic chronic kidney disease; E11.65 Type 2 diabetes mellitus with hyperglycemia; K59.09 Other constipation; I12.9 Hypertensive chronic kidney disease with stage 1 through stage 4 chronic kidney disease, or unspecified chronic kidney disease; N18.9 Chronic kidney disease, unspecified; E86.0 Dehydration; E78.5 Hyperlipidemia, unspecified; E78.00 Pure hypercholesterolemia, unspecified; F32.9 Major depressive disorder, single episode, unspecified; Z79.4 Long term (current) use of insulin; Z91.81 History of falling

== ENCOUNTER 2016-12-31 08:45 | Observation (INO) | payer MEDICARE, MEDICAID ==
--- NOTE | 2016-12-31 09:45 | ED PDOC ---
HPI: Trauma/Fall - HPI Time Seen by Provider: 12/31/16 09:09 Chief Complaint (Nursing): Trauma Chief Complaint (Provider): fall History Per: Family (son) History/Exam Limitations: language barrier Injury Occurred (Timing): Days Ago: (x 2) Additional Complaint(s): Lisa Ribeiro is a 81 year old female, with a previous medical history of diabetes, hypercholesterolemia, hypertension and diabetes, who presents to the ED accompanied by her son for pain to the right arm and knees after falling off her bed 2 hours prior to arrival. According to her son the home health aid found the patient on the floor at 08:00 and the patient reported falling 30 minutes before being found. Patient denies any head trauma or loss of consciousness. She reports remembering everything that happened. PMD: Dr. Scott Past Medical History Reviewed: Historical Data, Nursing Documentation, Vital Signs Vital Signs: Last Vital Signs Temp 99 F 12/31/16 08:47 Pulse 102 H 12/31/16 08:47 Resp 18 12/31/16 08:47 BP 142/72 12/31/16 08:47 Pulse Ox 98 12/31/16 08:47 - Medical History PMH: Depression, Diabetes, HTN, Hypercholesterolemia, Hyperlipidemia, Chronic Kidney Disease (Low kidney function ) - Family History Family History: States: Unknown Family Hx - Home Medications Home Medications: Ambulatory Orders Medication Instructions Recorded Aripiprazole [Abilify] 30 mg PO DAILY 10/01/16 Oxybutynin Chloride [Oxybutynin 10 mg PO DAILY 10/01/16 Chloride ER] Paricalcitol [Zemplar] 1 mcg PO Q48H 10/01/16 Rosuvastatin Calcium [Crestor] 10 mg PO HS 10/01/16 Sertraline [Zoloft] 100 mg PO DAILY 10/01/16 Valsartan [Diovan] 320 mg PO DAILY 10/01/16 traZODone [Desyrel] 50 mg PO HS 10/01/16 Promethazine DM [Phenergan DM 5 ml PO Q6 PRN 10/05/16 Syrup] Acetaminophen [Tylenol 325mg tab] 650 mg PO Q4H PRN 12/31/16 Glimepiride [Amaryl] 1 mg PO DAILY 12/31/16 Ipratropium [Atrovent HFA] 1 puff IH Q8H 12/31/16 Polyethylene Glycol 3350 [Miralax] 17 gm PO DAILY 12/31/16 - Allergies Allergies/Adverse Reactions: Allergies Allergy/AdvReac Type Severity Reaction Status Date / Time No Known Allergies Allergy Verified 07/01/15 10:14 Review of Systems ROS Statement: Except As Marked, All Systems Reviewed And Found Negative Musculoskeletal: Positive for: Shoulder Pain (right), Arm Pain (right), Hand Pain (right ), Leg Pain (bilateral knees). Negative for: Neck Pain Neurological: Negative for: Headache, Dizziness, Other (LOC) Physical Exam - Reviewed Nursing Documentation Reviewed: Yes Vital Signs Reviewed: Yes - Physical Exam Appears: Positive for: Well, Non-toxic, No Acute Distress Head Exam: Positive for: ATRAUMATIC, NORMAL INSPECTION, NORMOCEPHALIC Skin: Positive for: Normal Color, Warm, Dry Eye Exam: Positive for: Normal appearance, EOMI, PERRL. Negative for: Nystagmus ENT: Positive for: Normal ENT Inspection Neck: Positive for: Normal, Painless ROM, Supple Cardiovascular/Chest: Positive for: Regular Rate, Rhythm Respiratory: Positive for: Normal Breath Sounds Gastrointestinal/Abdominal: Positive for: Normal Exam, Bowel Sounds, Soft. Negative for: Tenderness Back: Positive for: Normal Inspection. Negative for: Vertebral Tenderness Extremity: Positive for: Normal ROM, Tenderness (the right shoulder down to the hand. tenderness to the bilateral knees as well), Capillary Refill (<2 seconds ) , Other (ecchymosis to the bilateral knees. no pelvic tenderness.). Negative for: Calf Tenderness, Deformity, Swelling Neurologic/Psych: Positive for: Alert, Oriented. Negative for: Motor/Sensory Deficits - ECG O2 Sat by Pulse Oximetry: 98 (RA) Pulse Ox Interpretation: Normal Medical Decision Making Medical Decision Making: Initial Impression: Fall Initial Plan: * x-ray right shoulder * x-ray right elbow * x-ray right hand * x-ray right wrist * x-ray right humours * x-ray right forearm * x-ray knees * accu-check * reevaluation 11:55 X-ray right wrist FINDINGS: BONES: No acute fractures. JOINTS: Anatomic alignment of carpal bones, radiocarpal relationships preserved SOFT TISSUES: Normal. OTHER FINDINGS: Diffuse osteopenia IMPRESSION: No acute findings related to/accounting for the clinical presentation. 11:47 X-ray right humerus BONES: No acute fractures. SOFT TISSUES: Normal. OTHER FINDINGS: Incompletely visualized degenerative changes right shoulder. IMPRESSION: No acute findings related to/accounting for the clinical presentation. 11:52 x-ray right elbow FINDINGS: BONES: Transverse lucency in the subarticular radial head, suspicious for nondisplaced transverse fracture. No other fracture identified. No dislocation. JOINTS: No dislocation. Articular surfaces preserved. There is a triangular corticated ossific density seen adjacent to the coronoid process of the ulna, which may reflect an intra-articular/intracapsular osseous body. SOFT TISSUES: Normal. JOINT EFFUSION: There is evidence of joint effusion/ hemarthrosis. OTHER FINDINGS: None. IMPRESSION: Probable hemarthrosis. Suspected nondisplaced radial head fracture though this is not demonstrated with certainty on this examination. Ossific triangular density adjacent to coronoid process of the ulna, possibly intracapsular osseous body. 11:53 x-ray right hand FINDINGS: BONES: Diffuse osteopenia. No apparent fracture. JOINTS: Degenerative changes, interphalangeal joint distribution SOFT TISSUES: Normal. OTHER FINDINGS: None. IMPRESSION: No acute findings related to/accounting for the clinical presentation. Additional benign and/or incidental findings described above. 11:57 X-ray right shoulder FINDINGS: BONES: Normal. No fracture. JOINTS: Preserved glenohumeral relationship, acromioclavicular degenerative change: Mild. SOFT TISSUES: Normal. OTHER FINDINGS: None. IMPRESSION: No acute findings related to/accounting for the clinical presentation. Scribe Attestation: Documented by Chrystal Gonzalez, acting as a scribe for Chrystal Diallo MD. Provider Scribe Attestation: All medical record entries made by the Scribe were at my direction and personally dictated by me. I have reviewed the chart and agree that the record accurately reflects my personal performance of the history, physical exam, medical decision making, and the department course for this patient. I have also personally directed, reviewed, and agree with the discharge instructions and disposition. Disposition - Clinical Impression Clinical Impression: Falls, Radial head fracture - Patient ED Disposition Is Patient to be Admitted: Yes - Disposition Disposition Time: 13:50 Condition: STABLE Forms: [employer] (U[place]) - Pt Status Changed To: Hospital Disposition Of: Observation - POA Present On Arrival: Falls Or Trauma
--- NOTE | 2016-12-31 11:49 | RAD ---
PROCEDURE: Radiographs of the right humerus. HISTORY: Fall COMPARISON: None. FINDINGS: BONES: No acute fractures. SOFT TISSUES: Normal. OTHER FINDINGS: Incompletely visualized degenerative changes right shoulder. IMPRESSION: No acute findings related to/accounting for the clinical presentation. No preliminary report provided by emergency department personnel.
--- NOTE | 2016-12-31 11:53 | RAD ---
PROCEDURE: Radiographs of the right elbow. HISTORY: Fall COMPARISON: No prior. FINDINGS: BONES: Transverse lucency in the subarticular radial head, suspicious for nondisplaced transverse fracture. No other fracture identified. No dislocation. JOINTS: No dislocation. Articular surfaces preserved. There is a triangular corticated ossific density seen adjacent to the coronoid process of the ulna, which may reflect an intra-articular/intracapsular osseous body. SOFT TISSUES: Normal. JOINT EFFUSION: There is evidence of joint effusion/ hemarthrosis. OTHER FINDINGS: None. IMPRESSION: Probable hemarthrosis. Suspected nondisplaced radial head fracture though this is not demonstrated with certainty on this examination. Ossific triangular density adjacent to coronoid process of the ulna, possibly intracapsular osseous body.
--- NOTE | 2016-12-31 11:54 | RAD ---
PROCEDURE: Right Hand Radiographs. HISTORY: Posttraumatic right upper extremity pain COMPARISON: None. FINDINGS: BONES: Diffuse osteopenia. No apparent fracture. JOINTS: Degenerative changes, interphalangeal joint distribution SOFT TISSUES: Normal. OTHER FINDINGS: None. IMPRESSION: No acute findings related to/accounting for the clinical presentation. Additional benign and/or incidental findings described above.
--- NOTE | 2016-12-31 11:57 | RAD ---
PROCEDURE: Right Wrist Radiographs. HISTORY: Fall COMPARISON: None. FINDINGS: BONES: No acute fractures. JOINTS: Anatomic alignment of carpal bones, radiocarpal relationships preserved SOFT TISSUES: Normal. OTHER FINDINGS: Diffuse osteopenia IMPRESSION: No acute findings related to/accounting for the clinical presentation. No preliminary report provided by emergency department personnel.
--- NOTE | 2016-12-31 11:58 | RAD ---
PROCEDURE: Radiographs of the Right Shoulder HISTORY: Fall COMPARISON: No prior. FINDINGS: BONES: Normal. No fracture. JOINTS: Preserved glenohumeral relationship, acromioclavicular degenerative change: Mild. SOFT TISSUES: Normal. OTHER FINDINGS: None. IMPRESSION: No acute findings related to/accounting for the clinical presentation. No preliminary report provided by emergency department personnel.
--- NOTE | 2016-12-31 13:16 | RAD ---
PROCEDURE: Radiographs of the Right Forearm HISTORY: Posttraumatic right arm pain COMPARISON: None available. TECHNIQUE: Frontal and lateral views obtained. FINDINGS: BONES: No acute fractures. JOINT SPACES: Incompletely visualized degenerative changes right elbow. Incompletely visualized findings related prior trauma distal right humerus. OTHER FINDINGS: None. IMPRESSION: No acute findings related to/accounting for the clinical presentation. No preliminary report provided by emergency department personnel.
[2016-12-31] MEDS ORDERED: Promethazine DM 6.25 mg-15 mg/5 ml Syrup PO PRN (14:57)
--- NOTE | 2016-12-31 15:11 | RAD ---
HISTORY: Falls COMPARISON: 10/03/2016 FINDINGS: LUNGS: Left lower lobe opacity again identified without significant interval change. Linear scar/atelectasis at right base. PLEURA: No significant pleural effusion identified, no pneumothorax apparent. CARDIOVASCULAR: Normal. OSSEOUS STRUCTURES: No significant abnormalities. VISUALIZED UPPER ABDOMEN: Normal. OTHER FINDINGS: None. IMPRESSION: Left lower lobe opacity noted. Right basilar linear scar/ atelectasis.
[2016-12-31 15:17] LABS: BASO % 0.5 % (0.0-2.0); EOS % 0.6 % (0.0-4.0); HEMATOCRIT 34.2 % (34.0-47.0); LYMPH # 1.5 K/uL (1.0-4.3); MEAN CELL VOLUME 81.8 fl (81.0-99.0); MEAN CORPUSCULAR HEMOGLOBIN 27.4 pg (27.0-31.0); MEAN CORPUSCULAR HGB CONC 33.5 g/dL (33.0-37.0); MEAN PLATELET VOLUME 8.6 fl (7.2-11.7); MONO # 0.7 K/uL (0.0-0.8); MONO % 9.8 % (0.0-10.0); NEUT # 4.5 K/uL (1.8-7.0); NEUT % 67.1 % (50.0-75.0); NRBC % 0.1 % (0.0-0.0); RED CELL DISTRIBUTION WIDTH 15.3 % (11.5-14.5); WHITE BLOOD COUNT 6.7 K/uL (4.8-10.8)
[2016-12-31 15:32] LABS: ALB/GLOB RATIO 1.2 (1.0-2.1); BILIRUBIN,TOTAL 0.5 mg/dl (0.2-1.3); POTASSIUM 4.5 MMOL/L (3.6-5.0); TOTAL PROTEIN 8.2 G/DL (6.3-8.2)
[2016-12-31 15:41] LABS: PARTIAL THROMBOPLASTIN TIME 28.7 Seconds (25.6-37.1)
[2016-12-31 16:05] LABS: RBC URINE 1 /hpf (0-3); URINE BACTERIA RARE (<OCC); URINE BILIRUBIN NEGATIVE (NEGATIVE); URINE BLOOD SMALL (NEGATIVE); URINE COLOR YELLOW (YELLOW); URINE GLUCOSE (UA) NEG (Normal); URINE KETONE NEGATIVE (NEGATIVE); URINE LEUKOCYTE ESTERASE MOD Leu/uL (Negative); URINE PROTEIN 30 mg/dL (NEGATIVE); URINE UROBILINOGEN 0.2-1.0 mg/dL (0.2-1.0); WBC URINE 12 /hpf (0-5)
--- NOTE | 2016-12-31 17:19 | RAD ---
PROCEDURE: Bilateral Knee Radiographs. HISTORY: Fall COMPARISON: None. FINDINGS: BONES: Right Knee: Normal. No fracture. Left Knee: Normal. No fracture. JOINTS: Right Knee: Normal. No osteoarthritis. Left knee: Normal. No osteoarthritis. SOFT TISSUES: Right Knee: Normal. Left Knee: Normal. JOINT EFFUSION: Right Knee: None. Left Knee: None. OTHER FINDINGS: None. IMPRESSION: No acute findings related to/accounting for the clinical presentation. No preliminary report provided by emergency department personnel.
[2016-12-31] MEDS: Sodium Chloride 0.9% 1,000 ML IV SCH (19:55)
[2017-01-01] MEDS: Sodium Chloride 0.9% 1,000 ML IV SCH ×3 (02:29→12:20)
[2017-01-01 07:29] LABS: BASO % 0.8 % (0.0-2.0); EOS # 0.1 K/uL (0.0-0.7); EOS % 1.7 % (0.0-4.0); HEMATOCRIT 31.6 % (34.0-47.0); LYMPH # 1.5 K/uL (1.0-4.3); LYMPH % 27.1 % (20.0-40.0); MEAN CELL VOLUME 83.8 fl (81.0-99.0); MEAN CORPUSCULAR HEMOGLOBIN 27.8 pg (27.0-31.0); MEAN CORPUSCULAR HGB CONC 33.2 g/dL (33.0-37.0); MEAN PLATELET VOLUME 8.7 fl (7.2-11.7); MONO # 0.6 K/uL (0.0-0.8); MONO % 10.2 % (0.0-10.0); NEUT # 3.3 K/uL (1.8-7.0); NEUT % 60.2 % (50.0-75.0); RED CELL DISTRIBUTION WIDTH 15.7 % (11.5-14.5); WHITE BLOOD COUNT 5.4 K/uL (4.8-10.8)
--- NOTE | 2017-01-01 07:34 | CP.PCM.HP ---
History of Present Illness - History of Present Illness History of Present Illness: pt admitted for r elbow fx after falling at home,a brasions to knees noted. no head injury noted/reported. per son pt has been falling alot recently. pt recently left [facility]. bw noted in er. started on ivf for elev bun/cr nitrites in urine, pending c/s and started on rocephin Present on Admission - Present on Admission Any Indicators Present on Admission: Yes History of Uncontrolled Diabetes: Yes Review of Systems - Musculoskeletal Musculoskeletal: As Per HPI, Arthralgias - Integumentary Integumentary: As Per HPI Additional comments: brusing Past Patient History - Infectious Disease Hx of Infectious Diseases: None - Past Medical History & Family History Past Medical History?: Yes - Past Social History Smoking Status: Never Smoked - CARDIAC Hx Hypercholesterolemia: Yes Hx Hypertension: Yes - PULMONARY Hx Respiratory Disorders: No - NEUROLOGICAL Hx Neurological Disorder: No - HEENT Hx HEENT Problems: No - RENAL Hx Chronic Kidney Disease: Yes (Low kidney function ) - ENDOCRINE/METABOLIC Hx Endocrine Disorders: Yes Hx Diabetes Mellitus Type 2: Yes - HEMATOLOGICAL/ONCOLOGICAL Hx Blood Disorders: No - INTEGUMENTARY Hx Dermatological Problems: No - MUSCULOSKELETAL/RHEUMATOLOGICAL Hx Falls: Yes - GASTROINTESTINAL Hx Gastrointestinal Disorders: No - GENITOURINARY/GYNECOLOGICAL Hx Genitourinary Disorders: No - PSYCHIATRIC Hx Depression: Yes - SURGICAL HISTORY Hx Surgeries: No - ANESTHESIA Hx Anesthesia: No Hx Anesthesia Reactions: No Meds Home Medications: Home Medication List Medication Instructions Recorded Confirmed Type cefTRIAXone 1 gm [Rocephin 1 gram 1 gm IVPB DAILY #7 bag 01/01/17 Rx IVPB] Allergies/Adverse Reactions: Allergies Allergy/AdvReac Type Severity Reaction Status Date / Time No Known Allergies Allergy Verified 07/01/15 10:14 Physical Exam - Constitutional Appears: Well, Non-toxic, No Acute Distress - Head Exam Head Exam: ATRAUMATIC, NORMAL INSPECTION, NORMOCEPHALIC - Eye Exam Eye Exam: EOMI, Normal appearance, PERRL Pupil Exam: NORMAL ACCOMODATION, PERRL - ENT Exam ENT Exam: Mucous Membranes Moist, Normal Exam - Neck Exam Neck exam: Positive for: Normal Inspection - Respiratory Exam Respiratory Exam: Clear to Auscultation Bilateral, NORMAL BREATHING PATTERN - Cardiovascular Exam Cardiovascular Exam: REGULAR RHYTHM, RRR, +S1, +S2 - GI/Abdominal Exam GI & Abdominal Exam: Normal Bowel Sounds, Soft. absent: Tenderness - Extremities Exam Extremities exam: Positive for: full ROM, normal capillary refill, normal inspection, pedal pulses present Additional comments: abrasions to b/l knees, rue in spling/sling, distlap ms intact, able to move fingers - Back Exam Back exam: NORMAL INSPECTION - Neurological Exam Neurological exam: Abnormal Gait, Alert, CN II-XII Intact, Reflexes Normal Additional comments: a/o to person/place - Psychiatric Exam Psychiatric exam: Normal Affect, Normal Mood - Skin Skin Exam: Dry, Intact, Normal Color, Warm Results - Vital Signs Recent Vital Signs: Last Vital Signs Temp 97.5 F L 01/01/17 00:00 Pulse 70 01/01/17 00:00 Resp 19 01/01/17 00:00 BP 147/75 01/01/17 00:00 Pulse Ox 97 01/01/17 00:00 - Labs Result Diagrams: 01/01/17 06:00 01/01/17 06:00 Labs: Laboratory Results - last 24 hr 12/31/16 12/31/16 12/31/16 15:01 15:01 15:01 WBC 6.7 RBC 4.19 Hgb 11.5 L Hct 34.2 MCV 81.8 D MCH 27.4 MCHC 33.5 RDW 15.3 H Plt Count 163 MPV 8.6 Neut % (Auto) 67.1 Lymph % (Auto) 22.0 Mcdonald % (Auto) 9.8 Eos % (Auto) 0.6 Baso % (Auto) 0.5 Neut # 4.5 Lymph # 1.5 Mcdonald # 0.7 Eos # 0.0 Baso # 0.0 PT 11.8 INR 1.1 APTT 28.7 Sodium 140 Potassium 4.5 Chloride 104 Carbon Dioxide 24 Anion Gap 17 BUN 49 H Creatinine 2.0 H Est GFR ( Amer) 29 Est GFR (Non-Af Amer) 24 POC Glucose (mg/dL) Random Glucose 139 H Calcium 10.0 Total Bilirubin 0.5 AST 59 H D ALT 32 Alkaline Phosphatase 101 Total Protein 8.2 Albumin 4.5 Globulin 3.7 Albumin/Globulin Ratio 1.2 Urine Color Urine Clarity Urine pH Ur Specific [place] Urine Protein Urine Glucose (UA) Urine Ketones Urine Blood Urine Nitrate Urine Bilirubin Urine Urobilinogen Ur Leukocyte Esterase Urine RBC (Auto) Urine Microscopic WBC Ur Squamous Epith Cells Urine Bacteria 12/31/16 12/31/16 01/01/17 15:30 20:59 05:34 WBC RBC Hgb Hct MCV MCH MCHC RDW Plt Count MPV Neut % (Auto) Lymph % (Auto) Mcdonald % (Auto) Eos % (Auto) Baso % (Auto) Neut # Lymph # Mcdonald # Eos # Baso # PT INR APTT Sodium Potassium Chloride Carbon Dioxide Anion Gap BUN Creatinine Est GFR ( Amer) Est GFR (Non-Af Amer) POC Glucose (mg/dL) 188 H 164 H Random Glucose Calcium Total Bilirubin AST ALT Alkaline Phosphatase Total Protein Albumin Globulin Albumin/Globulin Ratio Urine Color Yellow Urine Clarity Slighty-cloudy Urine pH 6.0 Ur Specific [place] 1.009 Urine Protein 30 Urine Glucose (UA) Neg Urine Ketones Negative Urine Blood Small Urine Nitrate Positive H Urine Bilirubin Negative Urine Urobilinogen 0.2-1.0 Ur Leukocyte Esterase Mod Urine RBC (Auto) 1 Urine Microscopic WBC 12 H Ur Squamous Epith Cells < 1 Urine Bacteria Rare Assessment & Plan (1) Falls Assessment and Plan: pt/ot jas today Status: Acute (2) Radial head fracture Assessment and Plan: ortho pain control splinting Status: Acute (3) CKD (chronic kidney disease) Assessment and Plan: ivf monitor bun/cr Status: Acute (4) DVT prophylaxis Assessment and Plan: scd nad aehose anticoag Status: Acute (5) Type 2 diabetes mellitus with hyperglycemia Assessment and Plan: fsbg, home meds riss if glucose in 200s Status: Acute (6) UTI (urinary tract infection) Assessment and Plan: rocpehin f/u c/s Status: Acute Decision To Admit - Pt Status Changed To: Hospital Disposition Of: Observation - . Bed Request Type: Med/Surg Admitting Physician: Gilbert Esparza
[2017-01-01 07:46] LABS: ALB/GLOB RATIO 1.1 (1.0-2.1); BILIRUBIN,TOTAL 0.5 mg/dl (0.2-1.3); CALCIUM 9.3 mg/dL (8.4-10.2); POTASSIUM 4.7 MMOL/L (3.6-5.0); TOTAL PROTEIN 7.3 G/DL (6.3-8.2)
[2017-01-01] MEDS ORDERED: GlipiZIDE 2.5 mg SR Tab PO SCH (08:00)
[2017-01-01] MEDS ORDERED: POLYETHYLENE GLYCOL 3350 17 GM/Dose PACKET PO SCH (09:00)
[2017-01-01] MEDS ORDERED: Enoxaparin 30 mg Syringe SC SCH (10:15)
[2017-01-01] MEDS: Insulin Regular 100 units/ml SC SCH ×2 (13:18→16:16)
--- NOTE | 2017-01-01 14:49 | CON ---
HISTORY OF PRESENT ILLNESS: The patient is an 81-year-old female with the previous history of diabetes, hypercholesterolemia, hypertension, who presented to the ED with a fall and pain in her right arm. She underwent multiple x-rays, which showed a probable nondisplaced fracture of the radial head currently. She was seen at bedside. She is comfortable in no acute distress. The patient is a poor historian. Denies any loss of consciousness. Denies any shortness of breath. Denies any acute events. PAST MEDICAL HISTORY: Hypercholesterolemia, hypertension and diabetes. ALLERGIES: NONE. PHYSICAL EXAMINATION: The patient's right arm is in a posterior splint. Sensation intact distally. Brisk capillary refill, able to move her fingers. Restrictions secondary to splint. 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 ASSESSMENT: An 81-year-old female with a right elbow nondisplaced radial head fracture treatment. At this time, I have reviewed the x-rays and it appears to be a nondisplaced radial head fracture at this time. I am recommending a CT scan of the right elbow to assess the two displacements and rule out any dislocation. The patient remain under splint until the CT scan results were reviewed by me. Remain nonweightbearing. Jose Schwarz MD
[2017-01-01] MEDS ORDERED: Tiotropium 18 mcg Cap For Inhalation IH SCH (15:00)
[2017-01-01 15:42] VITALS: BP 121/77; PULSE 93; RESP 17; TEMP 97.6; O2SAT 96
--- NOTE | 2017-01-01 18:00 | CARD ---
APPROVED REPORT EKG Measurement Heart [id number] <Conclusion> Sinus rhythm with 1st degree AV block Left axis deviation Minimal voltage criteria for LVH, may be normal variant Abnormal ECG
--- NOTE | 2017-01-01 20:08 | CT ---
EXAM: CT Right Upper Extremity Without Intravenous Contrast, Elbow CLINICAL HISTORY: 81 years old, female; Injury or trauma; Fall; Initial encounter; Abrasion; Elbow; Right; Injury date: 12/31/2016; Injury details: Pat fall at home; Additional info: Elbow fracture TECHNIQUE: Axial computed tomography images of the right elbow without intravenous contrast. This CT exam was performed using one or more of the following dose reduction techniques: automated exposure control, adjustment of the mA and/or kV according to patient size, and/or use of iterative reconstruction technique. Coronal and sagittal reformatted images were created and reviewed. 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 Large marginal osteophytes are seen. Multiple chronic-appearing periarticular bony densities are seen. The largest of these measures 1.5 cm, abuts the elbow joint anteriorly, and appears corticated. Chronic-appearing deformity of the radial head, which may be secondary to a remote fracture. No acute fractures are seen. No evidence of acute dislocation. No evidence of a significant elbow joint effusion. SOFT TISSUES: No evidence of soft tissue hematoma. IMPRESSION: - No acute fracture or dislocation seen. - Marked osteoarthritic changes and additional chronic changes, as described. - See above for remaining findings.
--- NOTE | 2017-01-02 06:25 | CP.PCM.DIS ---
Provider - Provider Date of Admission: 12/31/16 13:49 Attending physician: Gilbert Esparza MD Time Spent in preparation of Discharge (in minutes): 15 Diagnosis - Discharge Diagnosis (1) Falls Status: Acute (2) Radial head fracture Status: Acute (3) CKD (chronic kidney disease) Status: Acute (4) DVT prophylaxis Status: Acute (5) Type 2 diabetes mellitus with hyperglycemia Status: Acute (6) UTI (urinary tract infection) Status: Acute Hospital Course - Lab Results Lab Results: Most Recent Lab Values WBC 5.4 K/uL (4.8-10.8) 01/01/17 06:00 RBC 3.77 Mil/uL (3.80-5.20) L 01/01/17 06:00 Hgb 10.5 g/dL (12.0-16.0) L 01/01/17 06:00 Hct 31.6 % (34.0-47.0) L 01/01/17 06:00 MCV 83.8 fl (81.0-99.0) D 01/01/17 06:00 MCH 27.8 pg (27.0-31.0) 01/01/17 06:00 MCHC 33.2 g/dL (33.0-37.0) 01/01/17 06:00 RDW 15.7 % (11.5-14.5) H 01/01/17 06:00 Plt Count 131 K/uL (130-400) 01/01/17 06:00 MPV 8.7 fl (7.2-11.7) 01/01/17 06:00 Neut % (Auto) 60.2 % (50.0-75.0) 01/01/17 06:00 Lymph % (Auto) 27.1 % (20.0-40.0) 01/01/17 06:00 [place] % (Auto) 10.2 % (0.0-10.0) H 01/01/17 06:00 Eos % (Auto) 1.7 % (0.0-4.0) 01/01/17 06:00 Baso % (Auto) 0.8 % (0.0-2.0) 01/01/17 06:00 Neut # 3.3 K/uL (1.8-7.0) 01/01/17 06:00 Lymph # 1.5 K/uL (1.0-4.3) 01/01/17 06:00 [place] # 0.6 K/uL (0.0-0.8) 01/01/17 06:00 Eos # 0.1 K/uL (0.0-0.7) 01/01/17 06:00 Baso # 0.0 K/uL (0.0-0.2) 01/01/17 06:00 PT 11.8 Seconds (9.8-13.1) 12/31/16 15:01 INR 1.1 (0.9-1.2) 12/31/16 15:01 APTT 28.7 Seconds (25.6-37.1) 12/31/16 15:01 Sodium 141 mmol/l (132-148) 01/01/17 06:00 Potassium 4.7 MMOL/L (3.6-5.0) 01/01/17 06:00 Chloride 110 mmol/L (98-107) H 01/01/17 06:00 Carbon Dioxide 22 mmol/L (22-30) 01/01/17 06:00 Anion Gap 14 (10-20) 01/01/17 06:00 BUN 44 mg/dl (7-17) H 01/01/17 06:00 Creatinine 1.8 mg/dL (0.7-1.2) H 01/01/17 06:00 Est GFR ( Amer) 33 01/01/17 06:00 Est GFR (Non-Af Amer) 27 01/01/17 06:00 POC Glucose (mg/dL) 162 mg/dL (65-110) H 01/01/17 15:40 Random Glucose 144 mg/dL (65-105) H 01/01/17 06:00 Calcium 9.3 mg/dL (8.4-10.2) 01/01/17 06:00 Total Bilirubin 0.5 mg/dl (0.2-1.3) 01/01/17 06:00 AST 45 U/L (14-36) H D 01/01/17 06:00 ALT 38 U/L (9-52) 01/01/17 06:00 Alkaline Phosphatase 82 U/L (38-126) 01/01/17 06:00 Total Protein 7.3 G/DL (6.3-8.2) 01/01/17 06:00 Albumin 3.9 g/dL (3.5-5.0) 01/01/17 06:00 Globulin 3.4 gm/dL (2.2-3.9) 01/01/17 06:00 Albumin/Globulin Ratio 1.1 (1.0-2.1) 01/01/17 06:00 Urine Color Yellow (YELLOW) 12/31/16 15:30 Urine Clarity Slighty-cloudy (Clear) 12/31/16 15:30 Urine pH 6.0 (5.0-8.0) 12/31/16 15:30 Ur Specific [place] 1.009 (1.003-1.030) 12/31/16 15:30 Urine Protein 30 mg/dL (NEGATIVE) 12/31/16 15:30 Urine Glucose (UA) Neg mg/dL (Normal) 12/31/16 15:30 Urine Ketones Negative mg/dL (NEGATIVE) 12/31/16 15:30 Urine Blood Small (NEGATIVE) 12/31/16 15:30 Urine Nitrate Positive (NEGATIVE) H 12/31/16 15:30 Urine Bilirubin Negative (NEGATIVE) 12/31/16 15:30 Urine Urobilinogen 0.2-1.0 mg/dL (0.2-1.0) 12/31/16 15:30 Ur Leukocyte Esterase Mod [place]hela/uL (Negative) 12/31/16 15:30 Urine RBC (Auto) 1 /hpf (0-3) 12/31/16 15:30 Urine Microscopic WBC 12 /hpf (0-5) H 12/31/16 15:30 Ur Squamous Epith Cells < 1 /hpf (0-5) 12/31/16 15:30 Urine Bacteria Rare (<OCC) 12/31/16 15:30 Discharge Exam - Head Exam Head Exam: ATRAUMATIC, NORMAL INSPECTION, NORMOCEPHALIC Discharge Plan - Discharge Medications Prescriptions: cefTRIAXone 1 gm [Rocephin 1 gram IVPB] 1 gm IVPB DAILY #7 bag - Follow Up Plan Condition: STABLE Disposition: REHAB FACILITY/REHAB UNIT Instructions: Fall Prevention for Older Adults (GEN), Non Weight Bearing Activity (DC) Additional Instructions: cleared by ortho for dc to jas no new complaints final dx-r elbow fx, falls, uti f/u w/ rmg in [place], meds per med rec, cont anbx x 7 dyas Referrals: Gilbert Esparza MD [Staff Provider] - Jose Schwarz MD [Staff Provider] -
== END 2017-01-01 18:39 ==
LOC: H.ER 08:45 → H.ERHOLD 13:49 → H.MEDSURG1 17:06
PROVIDERS: ADMIT Family Medicine; ATTEND Family Medicine
DX: S52.124A Nondisplaced fracture of head of right radius, initial encounter for closed fracture (principal); W06.XXXA Fall from bed, initial encounter; Y92.003 Bedroom of unspecified non-institutional (private) residence as the place of occurrence of the external cause; E11.22 Type 2 diabetes mellitus with diabetic chronic kidney disease; E11.65 Type 2 diabetes mellitus with hyperglycemia; E78.00 Pure hypercholesterolemia, unspecified; E78.5 Hyperlipidemia, unspecified; I12.9 Hypertensive chronic kidney disease with stage 1 through stage 4 chronic kidney disease, or unspecified chronic kidney disease; N18.9 Chronic kidney disease, unspecified; N39.0 Urinary tract infection, site not specified; F32.9 Major depressive disorder, single episode, unspecified; S80.212A Abrasion, left knee, initial encounter; S80.211A Abrasion, right knee, initial encounter
CPT/HCPCS: 36415; 71010; 73030; 73060; 73080; 73090; 73110; 73130; 73200; 73562; 80053; 81003; 82948; 85025; 85610; 85730; 93005; 97162; 97165; 97530; 99285; G0378; G8978; G8979; G8987; G8988; J0696; J1650; J7040